=== PATIENT | female | born 1975 | race American Indian/Alaskan Native ===

== ENCOUNTER 2016-05-23 07:56 | Emergency (ER) | payer OTHER ==
[2016-05-23 08:18] VITALS: BP 140/97
[2016-05-23] MEDS ORDERED: BOOSTRIX IM ONE (09:02)
[2016-05-23] MEDS ORDERED: NACL 0.9% IR ONE (09:02)
[2016-05-23] MEDS ORDERED: XYLOCAINE 1%/ EPI 1:100,000 INFILTRATI ONE (09:02)
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
[2016-05-23] MEDS ORDERED: MOTRIN PO ONE (10:50)
[2016-05-23] MEDS ORDERED: NORCO 5/325 PO ONE (10:50)
== END 2016-05-23 11:47 | disposition home or self-care (01) ==
LOC: ED 07:56
DX: S01.81XA Laceration without foreign body of other part of head, initial encounter (principal); G43.909 Migraine, unspecified, not intractable, without status migrainosus; Y08.89XA Assault by other specified means, initial encounter; Y93.89 Activity, other specified; Y99.8 Other external cause status; Y92.009 Unspecified place in unspecified non-institutional (private) residence as the place of occurrence of the external cause
CPT/HCPCS: 90471; 90715

== ENCOUNTER 2016-06-03 17:19 | Emergency (ER) | payer OTHER ==
[2016-06-03 18:15] VITALS: BP 150/93
--- NOTE | 2016-06-03 18:26 | Emergency Department Report ---
Suture/Staple Removal - HPI Chief Complaint: Laceration/Recheck/Suture Stated Complaint: SUTURE REMOVAL Time Seen by Provider: 06/03/16 18:19 When Sutures or Lisa Placed: 11-14 Days Ago ED Review of Systems ROS: Stated complaint: SUTURE REMOVAL Other details as noted in HPI Comment: All other systems reviewed and negative ED Past Medical Hx - Past Medical History Hx Congestive Heart Failure: No Hx Diabetes: No Hx Liver Disease: No Hx Headaches / Migraines: Yes (occas migraine) Hx Asthma: No Hx COPD: No - Social History Smoking Status: Never Smoker - Medications Home Medications: Home Medications Medication Instructions Recorded Confirmed Last Taken Type Ibuprofen [Motrin 800 MG tab] 800 mg PO Q8HR PRN #20 tablet 05/23/16 Unknown Rx Suture Removal Exam - Exam General: Vital signs noted. No distress. Alert and acting appropriately. Wound: No Pathologic Erythema, No Tenderness, No Drainage, No Pus, No Wound Dehiscence Other Systems: All other systems reviewed and are unremarkable. ED Course Vital Signs 06/03/16 18:13 Temperature 98.4 F Pulse Rate 95 H Respiratory 16 Rate Blood Pressure 150/93 O2 Sat by Pulse 98 Oximetry Critical care attestation.: If time is entered above; I have spent that time in minutes in the direct care of this critically ill patient, excluding procedure time. ED Disposition Clinical Impression: Visit for suture removal Disposition: DISCHARGED TO HOME OR SELFCARE Is pt being admited?: No Does the pt Need Aspirin: No Condition: Stable Instructions: Suture Removal (ED) Additional Instructions: Now wash her hair. Return if she has any open wounds.
== END 2016-06-03 19:20 | disposition home or self-care (01) ==
LOC: ED 17:19
DX: Z48.02 Encounter for removal of sutures (principal); G43.909 Migraine, unspecified, not intractable, without status migrainosus; Z53.21 Procedure and treatment not carried out due to patient leaving prior to being seen by health care provider